=== PATIENT | female | born 1995 | race Caucasian/White ===

== ENCOUNTER 2019-09-05 15:29 | Outpatient (CLI) | payer OTHER | END 2019-09-05 15:30 | disposition EMS.NT | LOC: EMS 15:29 | PROVIDERS: ATTEND Surgery | DX: R56.9 Unspecified convulsions (principal); R00.0 Tachycardia, unspecified; R45.89 Other symptoms and signs involving emotional state ==

== ENCOUNTER 2019-09-05 16:51 | Emergency (ER) | payer OTHER ==
[2019-09-05] MEDS ORDERED: LORazepam 2 MG/ML VIAL IVP STA (17:21)
[2019-09-05 17:29] LABS: MUDS CUTOFF CONCENTRATIONS CUTOFF CONC BELOW:
--- NOTE | 2019-09-05 17:29 | ED Physician Documentation ---
History of Present Illness - Stated complaint Stated Complaint: SZ - Chief complaint Chief Complaint: Neuro - History obtained from History obtained from: Patient, Family - History of Present Illness Timing: Today Pain level max: 0 Pain level now: 0 - Additonal information Additional information: 23-year-old female presents the emergency department stating she was driving today when she felt like she began to shake. She pulled over. This is witnessed by her sister. She had spasming of her bilateral hands and feet. She was breathing rapidly. She states that she does not have any history of anxiety. No loss of consciousness. No postictal. Has not on any medications. She states that she has not more stress than usual. Nothing makes it better or worse. Currently asymptomatic. She states that she does usually have an elevated heart rate. Review of Systems Ten Systems: 10 systems reviewed and negative Constitutional: denies: Fever, Chills Eyes: denies: Loss of vision, Decreased vision, Photophobia Ears: denies: Ear pain Nose: denies: Rhinorrhea / runny nose, Congestion Throat: denies: Sore throat Cardiac: denies: Chest pain / pressure Respiratory: denies: Dyspnea, Cough GI: denies: Abdominal Pain, Nausea, Vomiting, Diarrhea : denies: Dysuria, Frequency, Hesitancy, Now EGA Skin: denies: Rash Musculoskeletal: denies: Neck pain, Back pain, Extremity pain Neurologic: reports: Headache (had a headache yesterday.). denies: Focal weakness, Numbness, Head injury, LOC PD PAST MEDICAL HISTORY - Past Medical History Past Medical History: No - Past Surgical History Past Surgical History: No - Present Medications Home Medications: Ambulatory Orders Medication Instructions Recorded Confirmed No Known Home Medications 09/05/19 09/05/19 - Allergies Allergies/Adverse Reactions: Allergies Allergy/AdvReac Type Severity Reaction Status Date / Time No Known Drug Allergies Allergy Verified 09/05/19 17:18 - Social History Does the pt smoke?: No Smoking Status: Never smoker Does the pt drink ETOH?: No Does the pt have substance abuse?: No - Immunizations Immunizations are current?: Yes PD ED PE NORMAL - Vitals Vital signs reviewed: Yes - General General: Alert and oriented X 3, No acute distress - HEENT HEENT: Atraumatic, PERRL, Ears normal, Moist mucous membranes, Pharynx benign - Neck Neck: Supple, no meningeal sign, No bony TTP - Cardiac Cardiac: Strong equal pulses, Other (Tachycardic) - Respiratory Respiratory: No respiratory distress, Clear bilaterally - Abdomen Abdomen: Soft, Non tender, Non distended - Back Back: No CVA TTP, No spinal TTP - Derm Derm: Warm and dry - Extremities Extremities: No edema, No calf tenderness / cord - Neuro Neuro: Alert and oriented X 3, grey iron molder 2-12 intact, No motor deficit, No sensory deficit, Normal speech Eye Opening: Spontaneous Motor: Obeys Commands Verbal: Oriented GCS Score: 15 - Psych Psych: Normal mood, Normal affect Results - Vitals Vitals: Vital Signs - 24 hr 09/05/19 09/05/19 17:10 18:06 Temperature 37.8 C H Heart Rate 113 H 97 Respiratory 18 18 Rate Blood Pressure 130/73 120/68 O2 Saturation 100 100 Oxygen O2 Source Room air - EKG (time done) 1851 Rate: Rate (enter#) (96) Rhythm: NSR Haines: Normal Intervals: Normal DE QRS: Normal Ischemia: Normal ST segments - Labs Labs: Laboratory Tests 09/05/19 09/05/19 09/05/19 17:05 17:31 17:31 WBC 8.8 RBC 4.09 L Hgb 12.7 Hct 37.9 MCV 92.7 MCH 31.1 H MCHC 33.5 RDW 12.5 Plt Count 240 MPV 10.1 Neut # (Auto) 6.5 Lymph # (Auto) 1.7 [place] # (Auto) 0.5 Eos # (Auto) 0.1 Baso # (Auto) 0.0 Absolute Nucleated RBC 0.00 Nucleated RBC % 0.0 ESR D-Dimer Sodium 139 Potassium 3.6 Chloride 105 Carbon Dioxide 23 Anion Gap 11.0 BUN 9 Creatinine 0.5 Estimated GFR (MDRD) 156 Glucose 96 Calcium 9.2 Phosphorus 3.5 Magnesium 2.2 Total Bilirubin 0.8 AST 20 ALT 14 Alkaline Phosphatase 97 C-Reactive Protein Total Protein 7.3 Albumin 4.7 Globulin 2.6 Albumin/Globulin Ratio 1.8 Lipase 30 Urine Color YELLOW Urine Clarity CLEAR Urine pH 7.0 Ur Specific [place] <=1.005 Urine Protein NEGATIVE Urine Glucose (UA) NEGATIVE Urine Ketones NEGATIVE Urine Occult Blood NEGATIVE Urine Nitrite NEGATIVE Urine Bilirubin NEGATIVE Urine Urobilinogen 0.2 (NORMAL) Ur Leukocyte Esterase NEGATIVE Ur Microscopic Review NOT INDICATED Urine Culture Comments NOT INDICATED Urine HCG, Qual NEGATIVE Salicylates < 6.0 Urine Opiates Screen NEGATIVE Ur Oxycodone Screen NEGATIVE Urine Methadone Screen NEGATIVE Ur Propoxyphene Screen NEGATIVE Acetaminophen < 10 L Ur Barbiturates Screen NEGATIVE Ur Tricyclics Screen NEGATIVE Ur Phencyclidine Scrn NEGATIVE Ur Amphetamine Screen NEGATIVE U Methamphetamines Scrn NEGATIVE U Benzodiazepines Scrn NEGATIVE Urine Cocaine Screen NEGATIVE U Cannabinoids Screen NEGATIVE Ethyl Alcohol < 5.0 09/05/19 09/05/19 09/05/19 17:31 17:31 17:38 WBC RBC Hgb Hct MCV MCH MCHC RDW Plt Count MPV Neut # (Auto) Lymph # (Auto) [place] # (Auto) Eos # (Auto) Baso # (Auto) Absolute Nucleated RBC Nucleated RBC % ESR 4 D-Dimer < 200.0 L Sodium Potassium Chloride Carbon Dioxide Anion Gap BUN Creatinine Estimated GFR (MDRD) Glucose Calcium Phosphorus Magnesium Total Bilirubin AST ALT Alkaline Phosphatase C-Reactive Protein < 1.0 Total Protein Albumin Globulin Albumin/Globulin Ratio Lipase Urine Color Urine Clarity Urine pH Ur Specific [place] Urine Protein Urine Glucose (UA) Urine Ketones Urine Occult Blood Urine Nitrite Urine Bilirubin Urine Urobilinogen Ur Leukocyte Esterase Ur Microscopic Review Urine Culture Comments Urine HCG, Qual Salicylates Urine Opiates Screen Ur Oxycodone Screen Urine Methadone Screen Ur Propoxyphene Screen Acetaminophen Ur Barbiturates Screen Ur Tricyclics Screen Ur Phencyclidine Scrn Ur Amphetamine Screen U Methamphetamines Scrn U Benzodiazepines Scrn Urine Cocaine Screen U Cannabinoids Screen Ethyl Alcohol - Rads (name of study) ct head Radiology: Prelim report reviewed, EMP read contemporaneously, See rad report (normal) PD MEDICAL DECISION MAKING - ED course Complexity details: reviewed results, re-evaluated patient, considered differential, d/w patient, d/w family ED course: Unclear etiology of the patient's symptoms, possible anxiety? If she does feel better after Ativan in the emergency department. CT head is negative. Normal neuro evidence of meningitis or encephalitis. Normal head CT. No acute findings on EKG. We will have her follow-up with her doctor for further care. Does not appear to be consistent with seizure at this time. Recommend that she have an MRI with her doctor. Patient and family counseled regarding signs and symptoms for which I believe and urgent re-evaluation would be necessary. Patient with good understanding of and agreement to plan and is comfortable going home at this time This document was made in part using voice recognition software. While efforts are made to proofread this document, sound alike and grammatical errors may occur. Departure - Departure Disposition: 01 Home, Self Care Clinical Impression: Observed seizure-like activity Condition: Good Instructions: ED Seizure New Onset Unk Cause Follow-Up: your,doctor in 1 week [Other] Comments: The cause of your symptoms is unclear today. You appear to be having carpal pedal spasms, typically this is seen with panic attacks, but Can be seen with other issues. Your head CT and lab work is normal today. You should have an MRI performed with your doctor. They may want to perform an EEG as well. Return if you worsen. Avoid being in positions where you may be submerged in water such as a bathtub and swimming pool.
[2019-09-05 17:32] LABS: BILIRUBIN,URINE NEGATIVE (NEGATIVE); GLUCOSE, URINE (UA) NEGATIVE (NEGATIVE); KETONES,URINE (UA) NEGATIVE (NEGATIVE); LEUKOCYTE ESTERASE, URINE NEGATIVE (NEGATIVE); NITRITE,URINE NEGATIVE (NEGATIVE); OCCULT BLOOD,URINE NEGATIVE (NEGATIVE); PROTEIN,URINE NEGATIVE (NEGATIVE); UROBILINOGEN,URINE 0.2 (NORMAL) E.U./dL (NORMAL)
[2019-09-05 17:33] LABS: CLARITY,URINE CLEAR (CLEAR)
[2019-09-05 17:34] LABS: HCG UR QUAL NEGATIVE
[2019-09-05 17:36] LABS: BASOPHILS % (AUTO) 0.3 %; EOSINOPHILS # (AUTO) 0.1 10^3/uL (0.0-0.7); EOSINOPHILS % (AUTO) 1.5 %; HGB - HEMOGLOBIN 12.7 g/dL (12.0-16.0); LYMPHOCYTES # (AUTO) 1.7 10^3/uL (1.5-3.5); MEAN CORPUSCULAR HEMOGLOBIN 31.1 pg (27.0-31.0); MEAN CORPUSCULAR HGB CONC 33.5 g/dL (32.0-36.0); MEAN CORPUSCULAR VOLUME 92.7 fL (81.0-99.0); MEAN PLATELET VOLUME 10.1 fL (7.9-10.8); MONOCYTES # (AUTO) 0.5 10^3/uL (0.0-1.0); MONOCYTES % (AUTO) 5.8 %; NEUTROPHILS # (AUTO) 6.5 10^3/uL (1.5-6.6); NEUTROPHILS % (AUTO) 72.9 %; PLT - PLATELET COUNT 240 10^3/uL (130-450); RED BLOOD COUNT 4.09 10^6/uL (4.20-5.40); RED CELL DISTRIBUTION WIDTH 12.5 % (12.0-15.0); WHITE BLOOD COUNT 8.8 x10^3/uL (4.8-10.8)
[2019-09-05 17:41] LABS: AMPHETAMINE SCREEN,URINE NEGATIVE (NEGATIVE); BENZODIAZEPINES SCREEN, URINE NEGATIVE (NEGATIVE); COCAINE SCREEN URINE NEGATIVE (NEGATIVE); METHADONE SCREEN, URINE NEGATIVE (NEGATIVE); METHAMPHETAMINES SCREEN, URINE NEGATIVE (NEGATIVE); OPIATE SCREEN, URINE NEGATIVE (NEGATIVE); OXYCODONE SCREEN, URINE NEGATIVE (NEGATIVE); PROPOXYPHENE SCREEN, URINE NEGATIVE (NEGATIVE); TRICYCLIC ANTIDEPRESSANT,URINE NEGATIVE (NEGATIVE)
[2019-09-05 17:50] LABS: ACETAMINOPHEN < 10 ug/mL (10-30); ALBUMIN 4.7 g/dL (3.2-5.5); ALBUMIN/GLOBULIN RATIO 1.8 (1.0-2.2); ALKALINE PHOSPHATASE 97 IU/L (42-121); ALT ALANINE AMINOTRANSFERASE 14 IU/L (10-60); AST ASPARTATE AMINOTRANSFERASE 20 IU/L (10-42); BILIRUBIN,TOTAL 0.8 mg/dL (0.2-1.0); BUN - BLOOD UREA NITROGEN 9 mg/dL (6-20); CALCIUM 9.2 mg/dL (8.5-10.3); CARBON DIOXIDE - CO2 23 mmol/L (21-32); CHLORIDE 105 mmol/L (101-111); CREATININE 0.5 mg/dL (0.4-1.0); GLUCOSE 96 mg/dL (70-100); LIPASE 30 U/L (22-51); MAGNESIUM 2.2 mg/dL (1.7-2.8); PHOSPHORUS 3.5 mg/dL (2.5-4.6); SALICYLATE < 6.0 mg/dL; SODIUM 139 mmol/L (135-145); TOTAL PROTEIN 7.3 g/dL (6.7-8.2)
--- NOTE | 2019-09-05 18:02 | CT Report ---
PROCEDURE: HEAD WO INDICATIONS: headaches, tremors TECHNIQUE: Noncontrast 4.5 mm thick angled axial sections acquired from the foramen magnum to the vertex. For r adiation dose reduction, the following was used: automated exposure control, adjustment of mA and/or kV according to patient size. COMPARISON: None. FINDINGS: Image quality: Excellent. CSF spaces: Basal cisterns are patent. No extra-axial fluid collections. Ventricles are normal in size and shape. Brain: No midline shift. No intracranial masses or hemorrhage. Vazquez-white matter interface is norm al. Skull and face: Calvarium and visualized facial bones are intact, without suspicious lesions. Sinuses: Visualized sinuses and mastoids are clear. IMPRESSION: Normal for age, source of current symptoms is not seen. Reviewed by: Andrew Cortez MD on 09/05/2019 5:00 PM [facility] Approved by: Andrew Cortez MD on 09/05/2019 5:00 PM [facility] Station ID: [id number]
[2019-09-05 19:25] VITALS: BP 100/59
== END 2019-09-05 19:24 | disposition home or self-care (01) ==
LOC: ED 16:51
DX: R56.9 Unspecified convulsions (principal); R00.0 Tachycardia, unspecified
CPT/HCPCS: 36415; 70450; 80053; 80320; 80329; 81003; 81025; 83690; 83735; 84100; 85025; 85379; 85651; 86140; 93005; 96374; 99284; J2060; 80306; 80307; 81001; 87086